=== PATIENT | male | born 1950 | race Caucasian/White ===

== ENCOUNTER → 2017-10-12 | Outpatient (CLI) | payer MEDICARE, OTHER ==
[~2017-10-12] MED LIST: ALLO100T70 PO; ASPI81TA94 PO; ATOR40TA24 PO; CEFU500T10 PO; CHOL10005 PO; CLAR-1 PO; DICL2SOL; FENO54TA6 PO; FLUT16SP19 NS; GABA-549 PO; HYDR-4309 PO; INSU100V24 SQ; INSU300I SUBQ; KET10 PO; LISI5TAB25 PO; METF-420 PO; METO25TA91 PO; PROM-110 PO; SULF-198 PO; biaxin PO
--- NOTE | 2017-10-12 12:09 | RADIOLOGY IMAGING REPORT ---
FACILITY: [facility] [place] PATIENT NAME: Markos Mckeon : 1950 MR: [id number] V: [id number] EXAM DATE: ORDERING PHYSICIAN: SUMI PADILLA TECHNOLOGIST: Location: [facility] Patient: Markos Mckeon : 1950 Visit/Account:[id number] Date of Sevice: 10/12/2017 Exam type: CHEST PA AND LAT History: History of melanoma, no chest complaints, nonsmoker Comparison: June 18, 2017 Findings: The lungs are free of acute effusions, infiltrates or edema. The cardiac silhouette is normal in siz e. There are sternotomy sutures and mediastinal clips... There are mild spondylotic changes of the thoracic spine IMPRESSION: 1. No acute cardiopulmonary process is seen Report Dictated By: Dionna Hall MD at 10/12/2017 11:22 AM Report E-Signed By: Dionna Hall MD at 10/12/2017 12:04 PM WSN:[email or web address]
== END ==
LOC: RAD 10:32
PROVIDERS: ATTEND Internal Medicine Hematology
DX: C43.9 Malignant melanoma of skin, unspecified (principal)
CPT/HCPCS: 36415; 71046; 82040; 82247; 82310; 82374; 82435; 82565; 82947; 84075; 84132; 84155; 84295; 84450; 84460; 84520; 85027

== ENCOUNTER 2017-10-15 13:18 | Outpatient (RCR) | payer MEDICARE, OTHER ==
[~2017-10-15] VITALS: Ht 172.7 cm; Wt 99.2 kg
[2017-10-15 13:34] VITALS: BP 125/77
--- NOTE | 2017-10-15 20:03 | ONCOLOGY FOLLOW UP NOTE ---
EVENT DATE: October 15, 2017 DIAGNOSES 1. Malignant melanoma of the skin of the right forearm. 2. Diabetes mellitus. 3. Hypercholesterolemia. 4. Coronary artery disease. CHIEF COMPLAINT Patient is here today for followup of his malignant melanoma of the skin of the right forearm. ONCOLOGY HSTORY Patient is a 67-year-old male who presented with a pigmented lesion of the right forearm. Patient saw Dr. Allred who did skin biopsy of the right forearm lesion done on June 23, 2017, and the pathology came back positive for malignant melanoma, incompletely excised with positive margins. Patient ended by having wide surgical excision and sentinel lymph node biopsy done on July 07, 2017. Skin of the right forearm wide excision showed well-healed scar, negative for residual malignancy and four sentinel lymph nodes came back negative for malignancy. HISTORY OF PRESENT ILLNESS Patient is here today for followup of his malignant melanoma of the skin of the right forearm. He is doing fine currently, except having pain at the left medial antecubital fossa recently with swelling which resolved in two days. PAST MEDICAL HISTORY 1. Diabetes mellitus. 2. Coronary artery disease. 3. Hypercholesterolemia. 4. Gout. PAST SURGICAL HISTORY 1. Hernia repair, June 2017. 2. Skin biopsy of the skin of the right forearm for malignant melanoma done on June 23, 2017. 3. Wide surgical excision and sentinel lymph node biopsy done on July 07, 2017 for malignant melanoma. 4. CABG in 2002. 5. Right knee surgery, remote past. 6. [place] tooth extraction. 7. Hernia repair from the right side as a child. FAMILY HISTORY Negative for cancer or blood diseases. SOCIAL HISTORY The patient is with three children. He is a retired respiratory therapist. Denies any abuse of tobacco, alcohol or drugs. CURRENT MEDICATIONS 1. Diclofenac sodium 2% solution applied to the arm. 2. Metoprolol XL 25 mg daily. 3. [place] 5/325 p.r.n. q.4 hourly for pain. 4. Metformin 1000 mg twice daily. 5. Lisinopril 5 mg daily. 6. Insulin 20 units subcutaneously daily. 7. Humalog insulin 5 units subcutaneously as needed. 8. Gabapentin 300 mg daily. 9. Fenofibrate 54 mg daily. 10. Atorvastatin 40 mg daily. 11. Aspirin 81 mg daily. 12. Allopurinol 100 mg daily. 13. Cholecalciferol 2000 units daily. ALLERGIES No known drug allergies. REVIEW OF SYSTEMS CONSTITUTIONAL: No appetite or weight change. No fever, chills or sweating. No recent infection. HEENT: Ears: No tinnitus or hearing problem. Nose: He has nasal discharge from sinus infection. Throat: No sore throat or mouth ulcers. Eyes: No diplopia or visual changes. RESPIRATORY: No shortness of breath. No cough, expectoration or hemoptysis. CARDIOVASCULAR: No chest pain, orthopnea, or paroxysmal nocturnal dyspnea (PND) . No edema. No palpitations. GASTROINTESTINAL: No nausea or vomiting. No diarrhea or constipation. No change in bowel movements. No heartburn or swallowing difficulties. No abdominal pain. No jaundice. No hematemesis, melena or rectal bleeding. GENITOURINARY: No hematuria or dysuria. MUSCULOSKELETAL: Patient has pain at the left medial antecubital fossa. There is a small nodule there that looks like a small lymph node or bursa. It was slightly tender to palpation. NEUROLOGICAL: He has tingling and numbness in the hands and feet from diabetic neuropathy. HEMATOLOGIC/LYMPHATIC: No bleeding or easy bruising. No weakness or fatigue. No enlarged lymph nodes. SKIN: No skin rash or lumps. PSYCHIATRIC: No anxiety or depression. PHYSICAL EXAMINATION GENERAL: Looks stable. Well-developed, well-nourished, and in no acute distress. VITAL SIGNS: Blood pressure 125/77, pulse 79 per minute, respirations 16 per minute, temperature 97.1, pulse ox 90% on room air. HEENT: Head: Atraumatic. No sinus tenderness to palpation. Eyes: No icterus or conjunctivitis. Mouth and throat: No oral thrush or mucositis. NECK: Supple. No cervical or supraclavicular lymphadenopathy. LUNGS: Clear to auscultation and percussion bilaterally. HEART: Regular rate and rhythm. No gallops, murmurs, clicks or rubs. ABDOMEN: Soft and lax. No tenderness. No hepatosplenomegaly. No masses. EXTREMITIES: No cyanosis, clubbing or edema. LYMPHATICS: No peripheral lymphadenopathy. NEUROLOGICAL: Conscious, alert and oriented times three. No focal motor or sensory deficits. PSYCHIATRIC: Mood and affect appear normal. SKIN: No skin rash, bruise or purpuric eruption. DIAGNOSTIC DATA CBC showed a white count of 7.8, hemoglobin 18.5, hematocrit 54.9, platelets 193 ,000. Chem panel totally normal except sodium 135, chloride 97, blood sugar 155. Chest x-ray without evidence of acute cardiopulmonary event. ASSESSMENT 1. Early malignant melanoma of the skin of the right forearm status post biopsy on June 23, 2017, followed by surgical excision and sentinel lymph node biopsy, done on July 07, 2017. Four lymph nodes were negative for metastasis. There is no residual cancer by wide surgical excision. Given that the patient does not have stage III malignant melanoma, he is not a candidate for adjuvant treatment, so surveillance was started. He is doing fine currently. I am planning to see him again in three months with CBC, chem panel and chest x-ray. Patient also is followed by his director of product development for screening of his skin. 2. Diabetes mellitus on treatment with insulin and metformin. 3. Hypercholesterolemia, on treatment. 4. Coronary artery disease, on treatment. PLAN 1. Continue followup. 2. Patient to return in three months with CBC, chem panel and chest x-ray. 3. Patient is to contact us for any new concerns or complaints. ESTEE
== END 2018-01-12 ==
LOC: ONC 13:18
PROVIDERS: ATTEND Internal Medicine Hematology
DX: Z85.820 Personal history of malignant melanoma of skin (principal); E78.00 Pure hypercholesterolemia, unspecified; I25.10 Atherosclerotic heart disease of native coronary artery without angina pectoris; E11.40 Type 2 diabetes mellitus with diabetic neuropathy, unspecified; Z79.82 Long term (current) use of aspirin; Z79.899 Other long term (current) drug therapy
CPT/HCPCS: 99212

== ENCOUNTER → 2018-01-11 | Outpatient (CLI) | payer MEDICARE, OTHER ==
--- NOTE | 2018-01-11 12:01 | RADIOLOGY IMAGING REPORT ---
FACILITY: [facility] [place] PATIENT NAME: Markos Mckeon : 1950 MR: [id number] V: [id number] EXAM DATE: ORDERING PHYSICIAN: SUMI PADILLA TECHNOLOGIST: Location: [facility] Patient: Markos Mckeon : 1950 Visit/Account:[id number] Date of Sevice: 01/11/2018 Exam type: CHEST PA AND LAT History: Follow-up melanoma Comparison: October 12, 2017. Findings: The lungs are free of acute effusions, infiltrates or edema. The cardiac silhouette is upper limits of normal in size. There are sternotomy sutures present and mild spondylotic changes of the thoracic spine. IMPRESSION: 1. No acute cardiopulmonary process is seen Report Dictated By: Dionna Hall MD at 01/11/2018 11:55 AM Report E-Signed By: Dionna Hall MD at 01/11/2018 11:56 AM WSN:[email or web address]
== END ==
LOC: RAD 11:11
PROVIDERS: ATTEND Internal Medicine Hematology
DX: C43.9 Malignant melanoma of skin, unspecified (principal)
CPT/HCPCS: 36415; 71046; 82040; 82247; 82310; 82374; 82435; 82565; 82947; 84075; 84132; 84155; 84295; 84450; 84460; 84520; 85027

== ENCOUNTER 2018-01-14 14:26 | Outpatient (RCR) | payer MEDICARE, OTHER ==
[2018-01-14 14:33] VITALS: BP 128/75
--- NOTE | 2018-01-14 20:23 | ONCOLOGY FOLLOW UP NOTE ---
EVENT DATE: January 14, 2018 DIAGNOSES 1. Malignant melanoma of the skin of the right forearm. 2. Diabetes mellitus. 3. Hypercholesterolemia. 4. Coronary artery disease. CHIEF COMPLAINT Patient is here today for followup of his malignant melanoma of the skin of the right forearm. ONCOLOGY HISTORY Patient is a 67-year-old male who presented with a pigmented lesion of the right forearm. Patient saw Dr. Allred who did skin biopsy of the right forearm lesion done on June 23, 2017, and the pathology came back positive for malignant melanoma, incompletely excised with positive margins. Patient ended by having wide surgical excision and sentinel lymph node biopsy done on July 07, 2017. Skin of the right forearm wide excision showed well-healed scar, negative for residual malignancy and four sentinel lymph nodes came back negative for malignancy. HISTORY OF PRESENT ILLNESS Patient is here today for followup of his malignant melanoma. Apart from having diabetic neuropathy with tingling and numbness in the feet, the patient does not have any other complaints. PAST MEDICAL HISTORY 1. Diabetes mellitus. 2. Coronary artery disease. 3. Hypercholesterolemia. 4. Gout. PAST SURGICAL HISTORY 1. Hernia repair, June 2017. 2. Skin biopsy of the skin of the right forearm for malignant melanoma done on June 23, 2017. 3. Wide surgical excision and sentinel lymph node biopsy done on July 07, 2017 for malignant melanoma. 4. CABG in 2002. 5. Right knee surgery, remote past. 6. [place] tooth extraction. 7. Hernia repair from the right side as a child. FAMILY HISTORY Negative for cancer or blood diseases. SOCIAL HISTORY The patient is with three children. He is a retired respiratory therapist. Denies any abuse of tobacco, alcohol or drugs. CURRENT MEDICATIONS 1. Diclofenac sodium 2% solution applied to the arm. 2. Metoprolol XL 25 mg daily. 3. [place] 5/325 p.r.n. q.4 hourly for pain. 4. Metformin 1000 mg twice daily. 5. Lisinopril 5 mg daily. 6. Insulin 20 units subcutaneously daily. 7. Humalog insulin 5 units subcutaneously as needed. 8. Gabapentin 300 mg daily. 9. Fenofibrate 54 mg daily. 10. Atorvastatin 40 mg daily. 11. Aspirin 81 mg daily. 12. Allopurinol 100 mg daily. 13. Cholecalciferol 2000 units daily. ALLERGIES No known drug allergies. REVIEW OF SYSTEMS CONSTITUTIONAL: No appetite or weight change. No fever, chills or sweating. No recent infection. HEENT: Ears: No tinnitus or hearing problem. Nose: He has nasal discharge from sinus infection. Throat: No sore throat or mouth ulcers. Eyes: No diplopia or visual changes. RESPIRATORY: No shortness of breath. No cough, expectoration or hemoptysis. CARDIOVASCULAR: No chest pain, orthopnea, or paroxysmal nocturnal dyspnea (PND) . No edema. No palpitations. GASTROINTESTINAL: No nausea or vomiting. No diarrhea or constipation. No change in bowel movements. No heartburn or swallowing difficulties. No abdominal pain. No jaundice. No hematemesis, melena or rectal bleeding. GENITOURINARY: No hematuria or dysuria. MUSCULOSKELETAL: Patient has pain at the left medial antecubital fossa. There is a small nodule there that looks like a small lymph node or bursa. It was slightly tender to palpation. NEUROLOGICAL: Patient has diabetic neuropathy of the feet with tingling and numbness. HEMATOLOGIC/LYMPHATIC: No bleeding or easy bruising. No weakness or fatigue. No enlarged lymph nodes. SKIN: No skin rash or lumps. PSYCHIATRIC: No anxiety or depression. PHYSICAL EXAMINATION GENERAL: Looks stable. Well-developed, well-nourished, and in no acute distress. VITAL SIGNS: Blood pressure 128/75, pulse 79 per minute, respirations 16 per minute, temperature 97.1, pulse ox 92% on room air. HEENT: Head: Atraumatic. No sinus tenderness to palpation. Eyes: No icterus or conjunctivitis. Mouth and throat: No oral thrush or mucositis. NECK: Supple. No cervical or supraclavicular lymphadenopathy. LUNGS: Clear to auscultation and percussion bilaterally. HEART: Regular rate and rhythm. No gallops, murmurs, clicks or rubs. ABDOMEN: Soft and lax. No tenderness. No hepatosplenomegaly. No masses. EXTREMITIES: No cyanosis, clubbing or edema. LYMPHATICS: No peripheral lymphadenopathy. NEUROLOGICAL: Conscious, alert and oriented times three. No focal motor or sensory deficits. PSYCHIATRIC: Mood and affect appear normal. SKIN: No skin rash, bruise or purpuric eruption. DIAGNOSTIC DATA CBC showed a white count of 8.4, hemoglobin 17.4, hematocrit 50.4, platelets 234 ,000. Chem panel totally normal except sodium 134, chloride 95, BUN 22, blood sugar 155. Other parameters are normal. Chest x-ray on January 11, 2018 showed no acute cardiopulmonary process. ASSESSMENT 1. Early malignant melanoma of the skin of the right forearm status post biopsy on June 23, 2017, followed by surgical excision and sentinel lymph node biopsy, done on July 07, 2017. Four lymph nodes were negative for metastasis. There is no residual cancer by the wide surgical excision. Patient was not a candidate for adjuvant treatment. Patient is also followed by his press operator. His current chest x-ray is without any acute cardiopulmonary process. I am planning to continue followup. I will see him again in six months with CBC, chem panel and chest x-ray. 2. Diabetes mellitus on treatment with insulin and metformin. 3. Hypercholesterolemia, on treatment. 4. Coronary artery disease, on treatment. PLAN 1. Continue followup. 2. Patient to return in six months with CBC, chem panel and chest x-ray. 3. Patient is to contact us for any new concerns or complaints. ESTEE
== END 2018-01-29 09:05 | disposition home or self-care (01) ==
LOC: ONC 14:26
PROVIDERS: ATTEND Internal Medicine Hematology
DX: Z85.820 Personal history of malignant melanoma of skin (principal); E11.40 Type 2 diabetes mellitus with diabetic neuropathy, unspecified; Z79.4 Long term (current) use of insulin; E78.00 Pure hypercholesterolemia, unspecified; I25.10 Atherosclerotic heart disease of native coronary artery without angina pectoris; Z79.82 Long term (current) use of aspirin; Z79.899 Other long term (current) drug therapy
CPT/HCPCS: 99212

== ENCOUNTER → 2018-08-02 | Outpatient (CLI) | payer MEDICARE, OTHER ==
[~2018-08-02] MED LIST changes: -HYDR-4309 PO; +HYDR-653 PO; -METF-420 PO; +METF-452 PO
--- NOTE | 2018-08-02 13:26 | RADIOLOGY IMAGING REPORT ---
FACILITY: [facility] [place] PATIENT NAME: Markos Mckeon : 1950 MR: [id number] V: [id number] EXAM DATE: [id number] ORDERING PHYSICIAN: SUMI PADILLA TECHNOLOGIST: Location: [facility] [place] Patient: Markos Mckeon : 1950 Visit/Account:[id number] Date of Sevice: 08/02/2018 Exam type: CHEST PA AND LAT History: Melanoma Comparison: January 11, 2018. Findings: There are sternotomy sutures present. The lungs are free of acute effusions, infiltrates or edema. On the lateral view only there suggestion of a nodular density at the level of the diaphragms. This could be an artifact from superimposed shadows versus a true pulmonary nodule. The cardiac silhouett e is normal. There are spondylotic changes in the thoracic spine IMPRESSION: 1. On the lateral view only at the level of the diaphragms are suggestion of a nodular density. Thi s could represent a superimposed shadow however given the clinical history of melanoma CT the chest m ay be helpful Report Dictated By: Dionna Hall MD at 08/02/2018 1:19 PM Report E-Signed By: Dionna Hall MD at 08/02/2018 1:21 PM WSN:[email or web address]
== END ==
LOC: RAD 10:57
PROVIDERS: ATTEND Internal Medicine Hematology
DX: R91.1 Solitary pulmonary nodule (principal)
CPT/HCPCS: 71046

== ENCOUNTER → 2018-08-02 | Outpatient (CLI) | payer MEDICARE, OTHER ==
[2018-08-02 11:35] LABS: PLATELET COUNT, AUTOMATED 216 K/uL (150-450)
[2018-08-02 12:01] LABS: LDL CHOLESTEROL 30 mg/dl
== END ==
LOC: LAB 11:00
PROVIDERS: ATTEND Nurse Practitioner Family
DX: I25.10 Atherosclerotic heart disease of native coronary artery without angina pectoris (principal); E11.9 Type 2 diabetes mellitus without complications; E11.40 Type 2 diabetes mellitus with diabetic neuropathy, unspecified; M10.9 Gout, unspecified; Z86.39 Personal history of other endocrine, nutritional and metabolic disease; I25.2 Old myocardial infarction; E78.00 Pure hypercholesterolemia, unspecified; I10 Essential (primary) hypertension; E55.9 Vitamin D deficiency, unspecified; E53.8 Deficiency of other specified B group vitamins
CPT/HCPCS: 36415; 82040; 82247; 82306; 82310; 82374; 82435; 82465; 82565; 82607; 82947; 83036; 83718; 84075; 84132; 84155; 84295; 84443; 84450; 84460; 84478; 84520; 85025

== ENCOUNTER 2018-08-24 00:39 | Day surgery (SDC) | payer MEDICARE, OTHER ==
[~2018-08-24] VITALS: Ht 175.3 cm; Wt 93.0 kg
[2018-08-24] MEDS ORDERED: PROPOFOL EMUL(*) 10MG/ML 20 ML 40 ML ONE (09:27)
[2018-08-24] MEDS ORDERED: LIDOCAINE MPF 1% 5 ML VIAL ONE (09:27)
[2018-08-24] MEDS ORDERED: NORMOSOL R SOLN(*) 1000 ML BAG 1,000 ML IV PRN (12:00)
[2018-08-24] MEDS ORDERED: MIDAZOLAM 2 MG/2 ML VIAL IVP PRN (12:00)
[2018-08-24] MEDS ORDERED: LIDOCAINE/SOD BICARB 8.4% SYR ID ONE (12:00)
[2018-08-24 12:03] VITALS: BP 140/87
[2018-08-24] MEDS ORDERED: IOPAMIDOL 76% 75 ML INFUS BTL 75 ML ONE (12:27)
[2018-08-24] MEDS ORDERED: MIDAZOLAM 2 MG/2 ML VIAL ONE (12:39)
[2018-08-24] MEDS ORDERED: fentaNYL CITR 100 MCG/2 ML AMP ONE (12:39)
[2018-08-24 13:17] VITALS: BP 116/78
[2018-08-24 13:45] VITALS: BP 103/77
[2018-08-24 13:47] VITALS: BP 105/68
--- NOTE | 2018-08-24 15:13 | RADIOLOGY IMAGING REPORT ---
FACILITY: [facility] PATIENT NAME: Markos Mckeon : 1950 MR: [id number] V: [id number] EXAM DATE: ORDERING PHYSICIAN: SUMI PADILLA TECHNOLOGIST: Location: [facility] Patient: Markos Mckeon : 1950 Visit/Account:[id number] Date of Sevice: 08/24/2018 CHEST W CONTRAST HISTORY: Melanoma. TECHNIQUE: CT chest with intravenous contrast. One of the following dose optimization techniques was utilized in the performance of this exam: Autom ated exposure control; adjustment of the mA and/or kV according to the patient's size; or use of an i terative reconstruction technique. Specific details can be referenced in the facility's radiology C T exam operational policy. CONTRAST: 75 mL Isovue-370. COMPARISON: None. FINDINGS: Heart/vessels: Post surgical changes from prior CABG. Moderate to advanced calcifications within th e [place] coronary arteries. Mild atherosclerosis within the thoracic aorta. Tortuous arch vessels w hich is nonspecific however can be seen as a sequela of chronic hypertension. Otherwise negative. Mediastinum: Mild/moderate nonspecific circumferential wall thickening of the mid/distal esophagus. Otherwise negative. Lymph nodes: Negative. No visualized lymphadenopathy. Lungs/pleura: Few scattered calcified granulomas. Subtle subsolid nodule within the left lung apex measuring up to 3 mm (image 46 of series 4). No additional solid or subsolid noncalcified nodules id entified. Visualized upper abdomen: Negative. Bones/soft tissues: Negative. No soft tissue nodularity identified. No acute or concerning osseous abnormality. IMPRESSION: 1. No definitive evidence for metastatic disease. 2. Nonspecific subsolid nodule within the left lung apex measuring up to 3 mm. Given history of mal ignancy, 3-6 month follow-up CT is recommended. 3. Nonspecific mild/moderate circumferential wall thickening of the mid/distal esophagus. 4. Additional incidental/chronic findings, as above. Report Dictated By: Stan Becerra MD at 08/24/2018 3:00 PM Report E-Signed By: Stan Becerra MD at 08/24/2018 3:09 PM WSN:[email or web address]
== END 2018-08-24 13:58 | disposition home or self-care (01) ==
LOC: OR 00:39
PROVIDERS: ATTEND Internal Medicine Hematology
DX: C43.9 Malignant melanoma of skin, unspecified (principal); R91.1 Solitary pulmonary nodule; I25.10 Atherosclerotic heart disease of native coronary artery without angina pectoris; I25.2 Old myocardial infarction; Z79.84 Long term (current) use of oral hypoglycemic drugs
CPT/HCPCS: 36416; 71260; 82948; J2001; J2250; J2704; Q9967; J3010

== ENCOUNTER 2018-08-25 10:51 | Outpatient (RCR) | payer MEDICARE, OTHER ==
[2018-08-05 13:05] VITALS: BP 134/78
--- NOTE | 2018-08-06 01:31 | [facility] ONCOLOGY NOTE ---
EVENT DATE: August 05, 2018 DIAGNOSES 1. Malignant melanoma of the skin of the right forearm. 2. Diabetes mellitus. 3. Hypercholesterolemia. 4. Coronary artery disease. CHIEF COMPLAINT Patient is here today for followup of his malignant melanoma of the skin of the right forearm. ONCOLOGY HISTORY Patient is a 68-year-old male who presented with a pigmented lesion of the right forearm. Patient saw Dr. Allred who did skin biopsy of the right forearm lesion done on June 23, 2017, and the pathology came back positive for malignant melanoma, incompletely excised with positive margins. Patient ended by having wide surgical excision and sentinel lymph node biopsy done on July 07, 2017. Skin of the right forearm wide excision showed well-healed scar, negative for residual malignancy and four sentinel lymph nodes came back negative for malignancy. HISTORY OF PRESENT ILLNESS Patient is here today for followup of his malignant melanoma of the right forearm. He is complaining of neuropathy from diabetes mellitus, more in the feet than the hands. PAST MEDICAL HISTORY 1. Diabetes mellitus. 2. Coronary artery disease. 3. Hypercholesterolemia. 4. Gout. PAST SURGICAL HISTORY 1. Hernia repair, June 2017. 2. Skin biopsy of the skin of the right forearm for malignant melanoma done on June 23, 2017. 3. Wide surgical excision and sentinel lymph node biopsy done on July 07, 2017 for malignant melanoma. 4. CABG in 2002. 5. Right knee surgery, remote past. 6. [place] tooth extraction. 7. Hernia repair from the right side as a child. FAMILY HISTORY Negative for cancer or blood diseases. SOCIAL HISTORY The patient is with three children. He is a retired respiratory therapist. Denies any abuse of tobacco, alcohol or drugs. CURRENT MEDICATIONS 1. Diclofenac sodium 2% solution applied to the arm. 2. Metoprolol XL 25 mg daily. 3. [place] 5/325 p.r.n. q.4 hourly for pain. 4. Metformin 1000 mg twice daily. 5. Lisinopril 5 mg daily. 6. Insulin 20 units subcutaneously daily. 7. Humalog insulin 5 units subcutaneously as needed. 8. Gabapentin 300 mg daily. 9. Fenofibrate 54 mg daily. 10. Atorvastatin 40 mg daily. 11. Aspirin 81 mg daily. 12. Allopurinol 100 mg daily. 13. Cholecalciferol 2000 units daily. ALLERGIES NO KNOWN DRUG ALLERGIES. REVIEW OF SYSTEMS CONSTITUTIONAL: No appetite or weight change. No fever, chills or sweating. No recent infection. HEENT: Ears: No tinnitus or hearing problem. Nose: No nasal discharge or epistaxis. Throat: No sore throat or mouth ulcers. Eyes: No diplopia or visual changes. RESPIRATORY: No shortness of breath. No cough, expectoration or hemoptysis. CARDIOVASCULAR: No chest pain, orthopnea, or paroxysmal nocturnal dyspnea (PND). No edema. No palpitations. GASTROINTESTINAL: No nausea or vomiting. No diarrhea or constipation. No change in bowel movements. No heartburn or swallowing difficulties. No abdominal pain. No jaundice. No hematemesis, melena or rectal bleeding. GENITOURINARY: No hematuria or dysuria. MUSCULOSKELETAL: No pain in the muscles, joints or bones. NEUROLOGICAL: Patient has tingling and numbness in the feet more than the hands due to his diabetes. HEMATOLOGIC/LYMPHATIC: No bleeding or easy bruising. No weakness or fatigued. No enlarged lymph nodes. SKIN: No skin rash or lumps. PSYCHIATRIC: No anxiety or depression. PHYSICAL EXAMINATION GENERAL: Looks stable. Well-developed, well-nourished, and in no acute distress. VITAL SIGNS: Blood pressure 134/78, pulse 75 per minute, respirations 16 per minute, temperature 96.4, pulse oximetry 92% on room air. HEENT: Head: Atraumatic. No sinus tenderness to palpation. Eyes: No icterus or conjunctivitis. Mouth and throat: No oral thrush or mucositis. NECK: Supple. No cervical or supraclavicular lymphadenopathy. LUNGS: Clear to auscultation and percussion bilaterally. HEART: Regular rate and rhythm. No gallops, murmurs, clicks or rubs. ABDOMEN: Soft and lax. No tenderness. No hepatosplenomegaly. No masses. EXTREMITIES: No cyanosis, clubbing or edema. LYMPHATICS: No peripheral lymphadenopathy. NEUROLOGICAL: Conscious, alert and oriented times three. No focal motor or sensory deficits. PSYCHIATRIC: Mood and affect appear normal. SKIN: No skin rash, bruise or purpuric eruption. DIAGNOSTIC DATA CBC showed a white count of 7.9, hemoglobin 18.7, hematocrit 55.3, platelet 216,000. Chem panel totally normal except sodium 134, chloride 96, carbon dioxide 21, BUN 23, blood sugar 198. B12 of 353. Chest x-ray done on 02 August 2018 showed on the lateral view a nodular density at the level of the diaphragm. ASSESSMENT 1. Early malignant melanoma of the skin of the right forearm, status post biopsy on June 23, 2017, followed by surgical excision and sentinel lymph node biopsy done July 07, 2017. Four lymph nodes were negative for metastases. There is no residual cancer by the wide surgical excision. No indication of adjuvant treatment after his surgery. 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 His current chest x-ray done on 02 August 2018 did reveal nodular density at the level of the diaphragm. I am planning to get a CT scan for further evaluation. I will see the patient after that to decide about further management. 2. Diabetes mellitus, on treatment with insulin and metformin. 3. Hypercholesterolemia, on treatment. 4. Coronary artery disease, on treatment. PLAN 1. CT chest with IV contrast. 2. Patient to return after the above for further evaluation and management. 3. Patient to contact us for any new concerns or complaints. ESTEE
[2018-08-25 11:12] VITALS: BP 135/89
--- NOTE | 2018-08-25 14:19 | ONCOLOGY FOLLOW UP NOTE ---
EVENT DATE: August 25, 2018 CHIEF COMPLAINT Followup for CT scan. HISTORY OF PRESENT ILLNESS Patient is a 68-year-old male who is seen today in followup. 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 He has had no further evidence of disease. Chest x-ray on August 02, 2018 showed a nodular density at the level of the diaphragm. He underwent CT of the chest with contrast on August 24, 2018 and is here for these results. He continues to feel well. He denies any excessive shortness of breath. He has noted no new skin lesions. He and his are considering moving to [place] but they are unsure at this time. ONCOLOGY HISTORY Patient presented in June 2017 with a pigmented lesion on the right forearm. Skin biopsy was positive for malignant melanoma, incompletely excised with positive margins. Underwent wide excision and sentinel lymph node biopsy on July 07, 2017 with clean margins. Four sentinel lymph nodes negative for malignancy. Continues followup with dermatology. PAST MEDICAL HISTORY 1. Diabetes mellitus. 2. Coronary artery disease. 3. Hypercholesterolemia. 4. Gout. PAST SURGICAL HISTORY 1. Hernia repair, June 2017. 2. Skin biopsy of the skin of the right forearm for malignant melanoma done on June 23, 2017. 3. Wide surgical excision and sentinel lymph node biopsy done on July 07, 2017 for malignant melanoma. 4. CABG in 2002. 5. Right knee surgery, remote past. 6. [place] tooth extraction. 7. Hernia repair from the right side as a child. FAMILY HISTORY Negative for cancer or blood diseases. SOCIAL HISTORY The patient is with three children. 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. He denies any abuse of tobacco, alcohol or drugs. CURRENT MEDICATIONS 1. Diclofenac sodium 2% solution applied to the arm. 2. Metoprolol XL 25 mg daily. 3. [place] 5/325 p.r.n. q.4 hourly for pain. 4. Metformin 1000 mg twice daily. 5. Lisinopril 5 mg daily. 6. Toujeo 20 units subcutaneously daily. 7. Humalog insulin 5 units subcutaneously as needed. 8. Gabapentin 300 mg daily. 9. Fenofibrate 54 mg daily. 10. Atorvastatin 40 mg daily. 11. Aspirin 81 mg daily. 12. Allopurinol 100 mg daily. 13. Cholecalciferol 2000 units daily. ALLERGIES NO KNOWN DRUG ALLERGIES. REVIEW OF SYSTEMS A 12-point review of systems is performed and is negative except as stated above. PHYSICAL EXAMINATION VITAL SIGNS: Weight 95.1 kg. BP 135/89, P 70, R 16, temperature 97.2, O2 sat 92%. GENERAL: Patient is a well-developed, well-nourished male in no acute distress. HEAD: Normocephalic, atraumatic. EYES: Sclerae anicteric. MOUTH: Moist mucous membranes. CARDIOVASCULAR; Heart rate regular, 70 per minute without murmurs, S3 or S4. LUNGS: Clear bilaterally. EXTREMITIES: No edema. SKIN: Well-healed wide excision on right forearm. LAB No lab today. IMPRESSION AND PLAN The patient is a 68-year-old male diagnosed with early malignant melanoma of the right forearm, status post wide excision on July 07, 2017. Four lymph nodes were negative for metastases. 1. Melanoma. No signs or symptoms of disease recurrence. Chest x-ray on August 02, 2018 revealed a nodular density at the level of the diaphragm. However, CT of the chest on August 24, 2018 showed a 3 mm nonspecific nodule in the left apex. Recommendation is to repeat this in three to six months. Patient prefers to do this in six months and he will be scheduled for the CT scan with followup with Dr. Pro after that. 2. Type 2 diabetes. Continue insulin and Metformin. 3. Hyperlipidemia. Continue current medications. 4. Coronary artery disease. Continue current medication. 5. Followup in six months for continued care. CT of the chest with contrast will be repeated before that visit. If they move to [place], he will notify us and followup will be made in that area. ESTEE
== END 2018-09-01 13:20 | disposition home or self-care (01) ==
LOC: ONC 10:51
PROVIDERS: ATTEND Internal Medicine Hematology
DX: C43.61 Malignant melanoma of right upper limb, including shoulder (principal); E11.40 Type 2 diabetes mellitus with diabetic neuropathy, unspecified; Z79.4 Long term (current) use of insulin; E78.00 Pure hypercholesterolemia, unspecified; I25.10 Atherosclerotic heart disease of native coronary artery without angina pectoris; Z79.82 Long term (current) use of aspirin; Z79.899 Other long term (current) drug therapy
CPT/HCPCS: G0463 ×2; 99212